=== PATIENT | male | born 1985 | race Two or more races ===

== ENCOUNTER 2022-10-18 12:40 | Emergency (ER) | payer OTHER, SELFPAY ==
[2022-10-18 13:18] VITALS: BP 128/65; PULSE 85; RESP 16; TEMP 36.6; O2SAT 99; BMI 29.4
--- NOTE | 2022-10-18 13:18 | ED_ITS ---
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 Patient denies any radiation of pain. No numbness or tingling in the groin or the lower extremities. No weakness the lower legs. No bowel or bladder incontinence. No fevers or chills. Patient is ambulatory. Patient has not tried any [id number] medications prior to arrival. Related Data Previous Rx's Medication Instructions Recorded cyclobenzaprine 10 mg tablet 10 mg PO TID PRN muscle spasm #10 10/18/22 tabs lidocaine 5 % topical patch 1 patch topical DAILY #15 ea 10/18/22 (Lidoderm) naproxen 500 mg tablet 500 mg PO BID PRN pain #30 tabs 10/18/22 Allergies Allergy/AdvReac Type Severity Reaction Status Date / Time No Known Allergies Allergy Unverified 02/14/20 18:58 [No Known Allergies*] Review of Systems Review of Systems: Yes all other systems are reviewed and are negative Constitutional: Constitutional: Reports no additional constitutional complaints, Denies body ache(s), Denies chills, Denies fever(s), Denies headache(s) and Denies weakness Eyes: Eyes: Reports no additional eye complaints and Denies change in vision ENT: Reports system reviewed and no additional complaints, except as documented, Denies dizziness, Denies headache(s), Denies nasal congestion, Denies nasal discharge and Denies neck pain Cardiovascular: Cardiovascular: Reports no additional cardiovascular complaints, Denies chest pain, Denies leg edema and Denies dyspnea Respiratory: Respiratory: Reports no additional respiratory complaints, Denies cough and Denies dyspnea Gastrointestinal: Gastrointestinal: Reports no additional gastrointestinal complaints, Denies abdominal pain, Denies diarrhea, Denies nausea and Denies vomiting Genitourinary: Genitourinary: Denies urinary incontinence Musculoskeletal: Musculoskeletal: Reports no additional musculoskeletal complaints, Reports back pain, Denies arthralgias, Denies joint swelling, Denies neck pain, Denies numbness and Denies tingling Integumentary/Breasts: Skin/Breast: Reports system reviewed and no additional complaints, except as docu and Denies rash Neurologic: Reports system reviewed and no additional complaints, except as documented, Denies Abnormal speech present, Denies dizziness, Denies headache(s), Denies numbness, Denies tingling and Denies weakness PMFSH Past Medical History Attestation statement: The following information was validated with the patient. Source: old records reviewed and nursing notes reviewed Social History Social History Advance Directives: No Advance Directives Information Provided: Yes Physical Exam Vital Signs: Vital Signs: Last Vital Signs Temp 97.9 F 10/18/22 13:18 Pulse 85 10/18/22 13:18 Resp 16 10/18/22 13:18 BP 128/65 10/18/22 13:18 Pulse Ox 99 10/18/22 13:18 O2 Del Method Room Air 10/18/22 13:18 BMI result Body Mass Index 29.4 Const: General: cooperative, healthy appearing, comfortable and no acute distress Orientation/consciousness: patient oriented x3 Limitations: no limitations HEENT: Head: Yes normal to inspection Ears: hearing grossly normal bilaterally General nose exam: Normal external nose present Face and sinus: Yes normal facial exam Mouth: Normal oral and palatal mucosa present Throat: Yes posterior oropharynx normal Eyes: General: appearance normal, both eyes and all related structures Pupils: Equal, round and reactive pupils present Neck: Neck: Yes normal visual inspection Chest: Chest palpation & inspection: normal inspection of the chest Resp: Effort & Inspection: normal respiratory effort Auscultation: clear to auscultation bilaterally Cardio: Rate: regular rate Rhythm: regular rhythm Peripheral pulses: Peripheral pulses 2+ throughout GI: Inspection: Yes normal to inspection Palpation (GI): Soft to palpation and nontender Auscultation: normal bowel sounds Back/Spine/Pelvis: Other: Patient with no midline tenderness, step-offs deformities. Patient with tenderness over the lumbar soft tissue on the right side Thoracic/Lumbar Spine: thoracic and lumbar spine normal to inspection Skin: General skin exam: no rashes or lesions noted Neuro: General: patient oriented x3, no focal motor deficits and normal sensation to monofilament Cranial nerves: Yes CN's II-XII intact bilaterally, Yes Equal, round and reactive pupils present, Yes Bilaterally intact EOM present, Yes Nystagmus not present, Yes Normal facial strength present and Yes Midline tongue present Cognition (Neuro): normal cognition Speech: No Abnormal speech present Gait exam (Neuro): Normal gait present Motor exam (neuro): 5/5 motor strength present throughout Sensory Exam: Normal double simultaneous stimulation for sensation Deep tendon reflexes (DTR's): Right patellar reflex intensity grade: 2+ and Left patellar reflex intensity grade: 2+ Extrem: General: Yes normal to inspection Medical Decision Making Medical Decision Making MDM Narrative: 36-year-old male here with acute on chronic back pain after lifting some heavy objects while working. No neurological deficits or red flag symptoms. No midline tenderness. Likely lumbar strain. Will discharge home with NSAID, muscle relaxants, medicated patches Differential Diagnosis Differential Diagnoses: The differential diagnosis associated with the presentation includes Low concern for cord compression, cauda equina, epidural abscess, malignancy, fracture, renal colic, pyelonephritis Discharge Plan Discharge Clinical Impression: Lumbar strain Patient Disposition: Home, Self-Care Instructions: Low Back Strain (ED) Additional Instructions: Heat or ice. gentle stretching. no heavy lifting or bending. follow-up with your pcp Néstor o liam. estiramiento suave. sin levantar objetos pesados ??ni agacharse. seguimiento con regan pcp Prescriptions: New naproxen 500 mg tablet 500 mg PO BID PRN (Reason: pain) Qty: 30 0RF cyclobenzaprine 10 mg tablet 10 mg PO TID PRN (Reason: muscle spasm) Qty: 10 0RF lidocaine [Lidoderm] 5 % adhesive patch,medicated 1 patch topical DAILY Qty: 15 0RF Rx Instructions: leave on most painful area for up to 12 hrs Referrals: ED Physician,Generic [Physician] - 1 week Stand Alone Forms: Work/School Release Interventions: ED Discharge Assessment Last Done: 10/18/22 13:36 Discharge Date/Time: 10/18/22 13:36 Print Language: Mosotho
== END 2022-10-18 13:36 | disposition home or self-care (01) ==
LOC: HO.ED 13:34
PROVIDERS: Emergency Provider Emergency Medicine
DX: S39.012A Strain of muscle, fascia and tendon of lower back, initial encounter (principal); X50.0XXA Overexertion from strenuous movement or load, initial encounter; Y93.9 Activity, unspecified; Y92.513 Shop (commercial) as the place of occurrence of the external cause; Y99.0 Civilian activity done for income or pay
CPT/HCPCS: 99282; 99283

== ENCOUNTER 2023-03-29 08:08 | Emergency (ER) | payer OTHER, SELFPAY ==
--- NOTE | ~2023-03-29 | XR_ITS ---
EXAMINATION: XR LUMBOSACRAL SPINE CLINICAL INFORMATION: Back injury Back pain COMPARISON: None available. TECHNIQUE: Three views of the lumbosacral spine. FINDINGS: There 5 nonrib-bearing lumbar-type vertebral bodies. The height of vertebral bodies and disc spaces is well-maintained. There is straightening of the usual lumbar lordosis which can be seen with muscle spasm. There is no spondylolisthesis. Incidental note is made of spina bifida occulta of S1; this is of doubtful clinical significance. XR/XR lumbar spine 2-3V IMPRESSION: Muscle spasm.
[2023-03-29 08:33] VITALS: BP 123/71; PULSE 75; RESP 16; TEMP 36.6; O2SAT 98; BMI 16.1
--- NOTE | 2023-03-29 08:57 | ED.BACK ---
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 Patient declines blood in the urine or dysuria. Related Data Previous Rx's Medication Instructions Recorded cyclobenzaprine 10 mg tablet 10 mg PO TID PRN muscle spasm #10 10/18/22 tabs lidocaine 5 % topical patch 1 patch topical DAILY #15 ea 10/18/22 (Lidoderm) naproxen 500 mg tablet 500 mg PO BID PRN pain #30 tabs 10/18/22 cyclobenzaprine 10 mg tablet 10 mg PO BEDTIME PRN muscle spasm 03/29/23 #10 tabs ibuprofen 400 mg tablet 400 mg PO Q8H PRN pain #14 tabs 03/29/23 Allergies Allergy/AdvReac Type Severity Reaction Status Date / Time No Known Allergies Allergy Verified 03/29/23 08:36 [No Known Allergies*] Review of Systems Review of Systems: All other systems are reviewed and are negative Constitutional: Reports as per HPI and Reports no additional constitutional complaints Eyes: Reports as per HPI and Reports no additional eye complaints Reports system reviewed and no additional complaints, except as documented Cardiovascular: Reports as per HPI and Reports no additional cardiovascular complaints Respiratory: Reports as per HPI and Reports no additional respiratory complaints Gastrointestinal: Reports as per HPI and Reports no additional gastrointestinal complaints Genitourinary: Reports no additional female genitourinary complaints Musculoskeletal: Reports no additional musculoskeletal complaints Skin/Breast: Reports system reviewed and no additional complaints, except as docu Psychiatric: Reports no additional psychiatric complaints Endocrine: Reports no additional endocrine complaints Hematologic/Lymphatic: Reports no additional hematologic/lymphatic complaints Allergic/Immunologic: Reports no additional allergic/immunologic complaints Reports system reviewed and no additional complaints, except as documented and Reports Abnormal speech present [facility] Social History Social History Smoked in Last 30 Days: Yes Use of substances other than those prescribed or required for medical reasons: Yes Substance Use Type: Marijuana Any prior treatment program specific to substance use: No Advance Directives: No Advance Directives Information Provided: Yes Physical Exam Vital Signs: Vital Signs: Last Vital Signs Temp 98 F 03/29/23 08:33 Pulse 75 03/29/23 08:33 Resp 16 03/29/23 08:33 BP 123/71 03/29/23 08:33 Pulse Ox 98 03/29/23 08:33 O2 Del Method Room Air 03/29/23 08:33 BMI result Body Mass Index 16.1 Vital signs have been reviewed and appear to be correct. Blood pressure elevated. Heart rate normal. Respiratory rate normal. Temperature normal. Oxygen saturation normal. Appearance: Alert. Oriented X3. No acute distress. Head: Normal external exam. Normocephalic. Atraumatic. No Key signs noted. No raccoon eyes noted Eyes: PERRLA. EOMI. Conjunctiva and sclera normal. Eyelids normal. ENT: TM's Normal. Pharynx normal. Uvula midline. Moist mucous membranes. No trismus noted. No drooling noted. No muffled voice noted. Neck: Normal inspection. Neck supple. FROM. No adenopathy. Thyroid Normal. No meningeal signs. No neck mass noted. CVS: Normal heart rate and rhythm. Heart sound normal. No murmurs noted. Pulses normal throughout. Respiratory: No respiratory distress. Painless inspiration. Breath sounds normal. No wheezes/rales/rhonchi noted. Chest nontender. No accessory muscle usage noted or decreased air movement noted. Abdomen: Soft and nontender. Bowel sounds normal in all 4 quadrants. No distention noted. No organomegaly noted. No visible injury noted. Back: No CVA tenderness. Full range of motion noted. Skin: Skin warm and dry. Normal skin color. Normal skin turgor. No rashes/lesions/lacerations noted. Extremities: No lower extremity edema. Extremities exhibit normal range of motion. Extremities nontender. Neuro: Oriented X 3. Cranial nerve exam: II-XII are grossly intact No motor deficit. No sensory deficit. Reflexes normal. Course Reevaluation(s) Reevaluation #1: Back pain after heavy lifting at work, UA is clear, there is no neurological deficit, patient instructed to avoid bending or heavy lifting with rest and NSAIDs if needed for pain. Time: 10:00 Medical Decision Making Differential Diagnosis Differential Diagnoses: The differential diagnosis associated with the presentation includes ( Pulled muscle, lumbar radiculopathy, kidney stone, UTI.) Admission/Observation Consideration of admission/observation: Escalation of care including admission/observation considered Lab Data MDM Lab Attestation statement: I reviewed the patient's lab results. Independent Interpretation I performed an independent interpretation of an: Plain X-Ray ( Lumbar spine x-ray: No acute pathology.) Radiology Impression Discussion of test interpretation with radiology: I have reviewed the radiologist's reading. Discharge Plan Discharge Clinical Impression: Strain of lumbar region Patient Disposition: Home, Self-Care Instructions: Muscle Strain (ED) Prescriptions: New cyclobenzaprine 10 mg tablet 10 mg PO BEDTIME PRN (Reason: muscle spasm) Qty: 10 0RF ibuprofen 400 mg tablet 400 mg PO Q8H PRN (Reason: pain) Qty: 14 0RF No Action naproxen 500 mg tablet 500 mg PO BID PRN (Reason: pain) Qty: 30 0RF cyclobenzaprine 10 mg tablet 10 mg PO TID PRN (Reason: muscle spasm) Qty: 10 0RF lidocaine [Lidoderm] 5 % adhesive patch,medicated 1 patch topical DAILY Qty: 15 0RF Rx Instructions: leave on most painful area for up to 12 hrs Stand Alone Forms: Work/School Release
[2023-03-29] MEDS: Ibuprofen 800 MG TABLET PO (09:17)
[2023-03-29 09:42] LABS: Appearance Urine Clear; Color Urine Yellow; Glucose Urine UA Negative (Negative); Leukocyte Esterase Urine Negative (Negative); Nitrite Urine Negative (Negative); Specific Gravity - Urine 1.015 (1.005-1.025); Urine Blood Negative (Negative); Urine Ketones Negative (Negative); Urine Protein Negative (Neg-Trace)
[2023-03-29 11:26] VITALS: BP 115/65; PULSE 62; RESP 16; TEMP 36.6; O2SAT 99
--- NOTE | 2023-03-29 11:32 | PC.NURSE ---
resting, calm, coop. reports decreased right lower back pain after ibuprofen.
[2023-03-29 11:33] VITALS: RESP 18
[2023-03-29 13:35] VITALS: BP 124/73; PULSE 61; RESP 16; TEMP 36.6; O2SAT 99
[2023-03-29 13:54] VITALS: BP 113/66; PULSE 60; RESP 18; TEMP 36.5; O2SAT 98
== END 2023-03-29 14:12 | disposition home or self-care (01) ==
PROVIDERS: Emergency Provider Emergency Medicine
DX: S39.012A Strain of muscle, fascia and tendon of lower back, initial encounter (principal); X50.0XXA Overexertion from strenuous movement or load, initial encounter; Y93.89 Activity, other specified; Y92.9 Unspecified place or not applicable; Y99.0 Civilian activity done for income or pay
CPT/HCPCS: 72100; 81003; 99283; 99284

== ENCOUNTER 2023-11-10 08:09 | Emergency (ER) | payer SELFPAY ==
[2023-11-10 08:26] VITALS: BP 127/67; PULSE 83; RESP 18; TEMP 36.8; O2SAT 99; BMI 29.5
--- NOTE | 2023-11-10 09:01 | ED.GENADULT ---
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 States brother is sick with similar symptoms. Denies cough or nasal congestion. Denies any chest pain or palpitations. Denies any abdominal pain, nausea, vomiting, diarrhea. States that he tested multiple times for COVID and they were all negative. complaint: Sore throat, body aches Onset (ago): day(s) Severity: moderate Quality: burning Pain Consistency: constant Relieving factors: none Exacerbating factors: none Associated symptoms: fever/chills Treatments prior to arrival: none Related Data Previous Rx's ?Medication ?Instructions ?Recorded cyclobenzaprine 10 mg tablet 10 mg PO TID PRN muscle spasm #10 10/18/22 tabs lidocaine 5 % topical patch 1 patch topical DAILY #15 ea 10/18/22 (Lidoderm) naproxen 500 mg tablet 500 mg PO BID PRN pain #30 tabs 10/18/22 cyclobenzaprine 10 mg tablet 10 mg PO BEDTIME PRN muscle spasm 03/29/23 #10 tabs ibuprofen 400 mg tablet 400 mg PO Q8H PRN pain #14 tabs 03/29/23 penicillin V potassium 500 mg 500 mg PO BID #20 tabs 11/10/23 tablet Allergies Allergy/AdvReac Type Severity Reaction Status Date / Time No Known Allergies Allergy Verified 11/10/23 08:32 [No Known Allergies*] Review of Systems Review of Systems: As per HPI. Yes all other systems are reviewed and are negative Constitutional: Constitutional: Reports as per HPI [facility] Social History Social History Substance Use Type: Marijuana Advance Directives: No Physical Exam ED Vital Signs: Vital Signs - 24 hr 11/10/23 08:26 Temperature 98.2 F Pulse Rate 83 Respiratory Rate 18 Blood Pressure 127/67 Pulse Oximetry 99 Oxygen Delivery Method Room Air BMI result Body Mass Index 29.5 Vital signs have been reviewed and appear to be correct. Blood pressure normal. Heart rate normal. Respiratory rate normal. Temperature normal. Oxygen saturation normal. Const General: cooperative, healthy appearing and no acute distress Orientation/consciousness: oriented to person, oriented to place, oriented to time and patient oriented x3 Limitations: no limitations HENMT Head: Yes normocephalic and Yes atraumatic Ears: external ears normal, TM's normal bilaterally and EAC's normal General nose exam: Normal external nose present, Normal nasal mucous membranes and turbinates present and Normal septum present Face and sinus: Yes face symmetric Mouth: Normal oral and palatal mucosa present, lip normal, tongue normal, oropharynx normal, moist mucous membranes, no drooling and no trismus Throat: Yes uvula midline, Yes abnormal tonsil (erythema, mild edema), No peritonsillar mass, Yes posterior oropharynx abnormal (erythema) and No uvular edema Eyes Pupils: Equal, round and reactive pupils present Neck Neck: Yes normal visual inspection, Yes no lymphadenopathy and Yes supple Resp Effort & Inspection: normal respiratory effort and able to speak in complete sentences Auscultation: clear to auscultation bilaterally Cardio Rate: regular rate Rhythm: regular rhythm Heart sounds: S1 normal heart sound present and S2 normal heart sound present GI Palpation (GI): Soft to palpation and nontender Auscultation: normoactive bowel sounds General: Yes no CVA tenderness Back/Spine/Pelvis Back: no CVA tenderness Skin General skin exam: elasticity normal and turgor normal Neuro General: oriented to person, oriented to place, oriented to time, patient oriented x3, moves all extremities, no focal motor deficits and CN's II-XI intact bilaterally Cranial nerves: Yes Equal, round and reactive pupils present Cognition (Neuro): normal cognition Extrem General: Yes full ROM, Yes no pedal edema and Yes no calf tenderness Psych Mental Status: mental status grossly normal Affect: normal affect Thought process: Normal thought process present Medical Decision Making Medical Decision Making MDM Narrative: Patient is a 37-year-old Belgian-speaking male presenting to the emergency department with complaint of sore throat, chills, body aches since Tuesday. On exam patient is awake, A+Ox3, VS WNL, afebrile, normal neurological exam without focal deficits, physical exam findings as above. Given reported symptoms and physical exam findings, initial differential includes viral illness, COVID, flu, RSV, strep pharyngitis. Strep swab positive. Viral serology also positive for Covid-19. Patient is outside the window for treatment with Paxlovid. Patient updated on results and all questions answered. Will treat patient with ELINA MALDONADO. Advised him he can use Tylenol and ibuprofen as needed and that he is contagious until he has been on antibiotics for 24 hours. Discussed that if brother has similar symptoms he should also be tested for strep. Return precautions discussed. Patient verbalized understanding of and agreement with plan. All results, questions, return precautions and plan discussed via engineering technical specialist at bedside. Differential Diagnosis Differential Diagnoses: The differential diagnosis associated with the presentation includes As per [facility]. Lab Data [facility] Lab Attestation statement: I reviewed the patient's lab results. As per [facility]. Labs: Lab Results 11/10/23 Range/Units 09:31 Influenza Type A (PCR) NEGATIVE (Negative) Influenza Type B (PCR) NEGATIVE (Negative) RSV RNA Qual (PCR) NEGATIVE (Negative) SARS-CoV-2 RNA (RT-PCR) POSITIVE A (Negative) S. pyogenes GrpA ADRIANA Positive A (Negative) External Record Review External record reviewed: Inpatient record, Office record and Outpatient record Prescription Management I considered prescription management with: Antibiotic Discharge Plan Discharge Clinical Impression: Acute streptococcal pharyngitis, COVID-19 Patient Disposition: Home, Self-Care Instructions: Strep Throat (DC), COVID-19 (Coronavirus Disease 2019) (ED) Additional Instructions: You were evaluated in the emergency department today for a sore throat. Your strep swab was positive as well as your Covid. You are being prescribed antibiotics, please complete the full course as prescribed even if your symptoms improve. You are contagious until you have taken the antibiotics for 24 hours. COVID is a viral infection which will resolve on its own over time. You should also continue to wear mask while symptomatic. Be sure to drink adequate fluids. You can use Tylenol and ibuprofen per package directions as needed for discomfort. You can also gargle with warm salt water several times daily. Follow-up with your primary care provider this week. Return to the emergency department if you develop difficulty swallowing, worsening pain, shortness of breath, are unable to swallow your saliva, fever not improved with Tylenol/ibuprofen, or any other concerning symptoms. Prescriptions: New penicillin V potassium 500 mg tablet 500 mg PO BID Qty: 20 0RF No Action naproxen 500 mg tablet 500 mg PO BID PRN (Reason: pain) Qty: 30 0RF cyclobenzaprine 10 mg tablet 10 mg PO TID PRN (Reason: muscle spasm) Qty: 10 0RF lidocaine [Lidoderm] 5 % adhesive patch,medicated 1 patch topical DAILY Qty: 15 0RF Rx Instructions: leave on most painful area for up to 12 hrs cyclobenzaprine 10 mg tablet 10 mg PO BEDTIME PRN (Reason: muscle spasm) Qty: 10 0RF ibuprofen 400 mg tablet 400 mg PO Q8H PRN (Reason: pain) Qty: 14 0RF Stand Alone Forms: Work/School Release Print Language: Belgian
[2023-11-10 09:42] LABS: IDNOW Serial# 08D9AD1C
[2023-11-10 09:43] LABS: Strep A Nucleic Acid Positive (Negative)
[2023-11-10 10:26] LABS: Influenza A PCR NEGATIVE (Negative); Influenza B PCR NEGATIVE (Negative); Resp Syncy Virus RNA Qual PCR NEGATIVE (Negative); SARS COV2 PCR INHOUSE POSITIVE (Negative)
[2023-11-10 10:49] VITALS: BP 127/67; PULSE 83; RESP 18; TEMP 36.8; O2SAT 99
== END 2023-11-10 10:50 | disposition home or self-care (01) ==
PROVIDERS: Emergency Provider Emergency Medicine
DX: U07.1 COVID-19 (principal); J02.0 Streptococcal pharyngitis
CPT/HCPCS: 0241U; 87651; 99282; 99283

== ENCOUNTER 2023-11-21 11:21 | Emergency (ER) | payer SELFPAY ==
--- NOTE | ~2023-11-21 | CT_ITS ---
EXAMINATION: CT ABDOMEN AND PELVIS WITH CONTRAST CLINICAL INFORMATION: Left lower quadrant pain? Diverticulitis COMPARISON: None. TECHNIQUE: Multidetector volumetric imaging was performed from the superior aspect of the liver through the pubic symphysis following administration of 85 mL Omnipaque 300 intravenous contrast. Sagittal and coronal reformatted images were obtained on the technologist workstation.. This CT examination was performed using dose optimization techniques as appropriate, variously including the following: *Automated exposure control *Adjustment of mA and/or kV according to patient size (this includes techniques or standardized protocols for targeted exams where dose is matched to indication/reason for exam; i.e. extremities or head) *Use of iterative reconstruction technique DLP: 748 mGy-cm FINDINGS: LUNG BASES: The visualized lung bases are unremarkable. LIVER, GALLBLADDER, AND BILIARY TREE: The liver is normal in size, shape, and attenuation. No focal hepatic lesion or biliary ductal dilatation is present. The gallbladder is unremarkable with no evidence of radiopaque gallstones, gallbladder wall thickening, or obvious pericholecystic inflammatory changes. PANCREAS: Unremarkable. SPLEEN: Unremarkable. ADRENAL GLANDS: Unremarkable. KIDNEYS AND URETERS: The kidneys are normal in size, shape, and attenuation. No hydronephrosis, hydroureter, or perinephric stranding. No calculi. BLADDER: Partially decompressed but otherwise unremarkable GASTROINTESTINAL TRACT: Although a few scattered colonic diverticula are seen, there is a focal inflammatory changes surrounding some pericolonic fat in the distal descending colon. The appearance is more suggestive of a torsed appendage epiploica although sequela of diverticulitis cannot be entirely excluded and should be clinically correlated. More proximal colon grossly unremarkable. Unremarkable appendix. ABDOMINAL WALL: No significant hernia is appreciated. LYMPHOVASCULAR STRUCTURES: No lymphadenopathy. The aorta is unremarkable. PELVIC VISCERA: Unremarkable. OSSEOUS STRUCTURES: Unremarkable. CT/CT abdomen pelvis w IV con IMPRESSION: Although a few scattered colonic diverticula are seen, there is a focal area of pericolonic inflammatory changes in the fat adjacent to the distal descending colon. The appearance is more suggestive of a torsed appendage epiploica although sequela of diverticulitis cannot be entirely excluded and should be clinically correlated.
--- NOTE | 2023-11-21 11:52 | ED_ITS ---
HPI - Abdominal Pain General Chief Complaint: Abdominal Pain Stated Complaint: Abd pain Time Seen by Provider: 11/21/23 20:20 Source: patient Mode of arrival: ambulatory Limitations: no limitations History of Present Illness ED Provider: raffi HOLMAN narrative: Patient has been having left lower abdominal pain with diarrhea for last 3 days diarrhea started 1st the now continued to have pain in left lower abdomen no radiation of the pain pain gets worse on bowel movement never had similar pain in the past no fever no chills no urinary symptoms no history of kidney stone patient never had similar pain in the past been gets worse after eating food Related Data Previous Rx's ?Medication ?Instructions ?Recorded cyclobenzaprine 10 mg tablet 10 mg PO TID PRN muscle spasm #10 10/18/22 tabs lidocaine 5 % topical patch 1 patch topical DAILY #15 ea 10/18/22 (Lidoderm) naproxen 500 mg tablet 500 mg PO BID PRN pain #30 tabs 10/18/22 cyclobenzaprine 10 mg tablet 10 mg PO BEDTIME PRN muscle spasm 03/29/23 #10 tabs ibuprofen 400 mg tablet 400 mg PO Q8H PRN pain #14 tabs 03/29/23 penicillin V potassium 500 mg 500 mg PO BID #20 tabs 11/10/23 tablet Allergies Allergy/AdvReac Type Severity Reaction Status Date / Time No Known Allergies Allergy Verified 11/21/23 11:54 [No Known Allergies*] Review of Systems Review of Systems Yes all other systems are reviewed and are negative [facility] Social History Social History Alcohol intake: current Alcohol intake frequency: holidays/special occasions only Smoked in Last 30 Days: Yes Use of substances other than those prescribed or required for medical reasons: Yes Substance Use Type: Marijuana Substance Use Frequency: Daily Advance Directives: No Advance Directives Information Provided: No Do you have a plan to hurt others: No Plan Physical Exam ED Vital Signs: Vital Signs - 24 hr 11/21/23 11:53 11/21/23 19:20 11/21/23 20:59 Temperature 97.8 F 97.0 F 97.8 F Pulse Rate 68 62 56 Respiratory Rate 20 18 16 Blood Pressure 119/68 121/75 115/75 Pulse Oximetry 99 100 99 Oxygen Delivery Method Room Air Room Air Room Air 11/21/23 22:33 11/21/23 23:34 Temperature 97.6 F 97.5 F Pulse Rate 53 57 Respiratory Rate 18 16 Blood Pressure 110/58 L 118/75 Pulse Oximetry 98 99 Oxygen Delivery Method Room Air Room Air BMI result Body Mass Index 30.3 Appearance: Alert. Oriented X3. No acute distress. Eyes: No pallor or icterus ENT: Pharynx normal. Oral Mucosa moist Neck: Normal inspection. Neck supple. CVS: Normal heart rate and rhythm. Pulses normal. Respiratory: No respiratory distress. Equal air entry bilateral, no wheezing/rales/rhonchi Abdomen: Soft LLQ pain with guarding no rebound tenderness, Bowel sounds are present, no mass palpable, no CVA tenderness Skin: Skin warm and dry. Normal skin color. Normal skin turgor. Extremities: No lower extremity edema. No calf tenderness Neuro: Oriented X 3. Course Course Course Narrative: This is a Rapid Medical Exam performed in triage by Zaina Medrano PA-C. Full HPI, ROS and PE to be performed by primary ED provider. 37 year-old M w/no sig PMHx presenting to the ED c/o upper abdominal pain x4 days w/diarrhea. +worse with eating. denies N/V PE: abdomen soft w/ +LLQ ttp no rebound or guarding Plan: Labs, UA, CTAP -1920--labs/UA reassuring. Reports continued abdominal pain Medical Decision Making Medical Decision Making [facility] Narrative: Patient will left lower abdominal pain CT scan showed epiploic appendagitis no signs of diverticulitis labs are stable patient improved after Toradol will discharge patient home on ibuprofen Differential Diagnosis Differential Diagnoses: The differential diagnosis associated with the presentation includes Diverticulosis/diverticulitis/epiploic appendagitis Admission/Observation Consideration of admission/observation: Escalation of care including admission/observation considered Lab Data [facility] Lab Attestation statement: I reviewed the patient's lab results. 11/21/23 13:19 11/21/23 13:19 Labs: Lab Results 11/21/23 Range/Units 13:19 WBC 8.2 (4.8-10.8) X10*3/uL RBC 5.11 (4.60-5.80) X10*6/uL Hgb 14.9 (14.0-18.0) g/dl Hct 44.9 (42.0-52.0) % MCV 87.9 (80.0-98.0) fL MCH 29.2 (27.0-33.0) pg MCHC 33.2 (31.0-36.0) g/dl RDW 13.5 (11.0-16.0) % Plt Count 202 (160-400) X10*3/uL MPV 11.2 (9.4-12.4) fL Immature Gran % (Auto) 0.2 (0.0-0.4) % Neut % (Auto) 53.4 (45-73) % Lymph % (Auto) 36.8 (20-40) % [place] % (Auto) 5.1 (2-11) % Eos % (Auto) 3.8 (0-4) % Baso % (Auto) 0.7 (0-2) % Lymph # (Auto) 3.0 (1.2-4.9) X10*3/uL [place] # (Auto) 0.4 (0.1-1.2) X10*3/uL Eos # (Auto) 0.3 (0.0-0.4) X10*3/uL Baso # (Auto) 0.1 (0.0-0.2) X10*3/uL Abs Immat Gran (auto) 0.02 (0.00-0.03) X10*3/uL Absolute Neuts (auto) 4.4 (2.0-8.3) x10*3/uL Absolute Nucleated RBC 0.000 (0.0-0.012) X10*3/uL Nucleated RBC % (auto) 0.0 (0.0-0.2) /100WBC Sodium 139 (135-145) mmol/L Potassium 4.0 (3.3-5.1) mmol/L Chloride 105 (96-108) mmol/L Carbon Dioxide 26 (22-29) mmol/L Anion Gap 12 (12-20) BUN 10 (9-16) mg/dL Creatinine 0.84 (0.5-1.4) mg/dL Estim Creat Clear Calc 151.2 Estimated GFR > 60 Random Glucose 78 (60-115) mg/dL Calcium 10.0 (8.4-10.2) mg/dL Magnesium 2.0 (1.6-2.6) mg/dL Total Bilirubin 0.4 (0.0-1.0) mg/dL Direct Bilirubin 0.2 (0.0-0.5) mg/dL AST 19 (5-37) U/L ALT 22 (0-40) U/L Alkaline Phosphatase 87 (39-117) U/L Total Protein 7.4 (6.5-8.0) g/dL Albumin 4.4 (3.5-5.0) g/dL Lipase 20 (8-78) U/L Urine Color Yellow Urine Appearance Clear Urine pH 6.0 (5.0-9.0) Ur Specific [place] 1.015 (1.005-1.025) Urine Protein Negative (Neg-Trace) mg/dL Urine Glucose (UA) Negative (Negative) mg/dL Urine Ketones Negative (Negative) mg/dL Urine Blood Negative (Negative) Urine Nitrite Negative (Negative) Ur Leukocyte Esterase Negative (Negative) Independent Interpretation I performed an independent interpretation of an: CT Scan Radiology Impression Discussion of test interpretation with radiology: I have reviewed the radiologist's reading. Medications Administered Discontinued Medications Generic Name Dose Route Start Last Admin Trade Name Freq PRN Reason Stop Dose Admin Sodium Chloride 1,000 mls @ 999 mls/hr 11/21/23 20:52 11/21/23 22:51 Ns IV 11/21/23 21:52 Infused .Q1H1M ONE Infusion Iohexol 100 ml 11/21/23 21:16 11/21/23 21:16 Iohexol 350 Mg/Ml 100 Ml Infus..Btl IV 11/21/23 21:17 85 ml ONCE ONE Administration Ketorolac Tromethamine 30 mg 11/21/23 20:52 11/21/23 21:23 Ketorolac Tromethamine 30 Mg/Ml Vial IVPUSH 11/21/23 20:53 30 mg ONCE ONE Administration Discharge Plan Discharge Clinical Impression: Epiploic appendagitis Patient Disposition: Home, Self-Care Instructions: Abdominal Pain (ED) Additional Instructions: Your pain in the abdomen is from inflammation of the fat Take ibuprofen for pain Drink plenty of fluids Prescriptions: No Action penicillin V potassium 500 mg tablet 500 mg PO BID Qty: 20 0RF naproxen 500 mg tablet 500 mg PO BID PRN (Reason: pain) Qty: 30 0RF cyclobenzaprine 10 mg tablet 10 mg PO TID PRN (Reason: muscle spasm) Qty: 10 0RF lidocaine [Lidoderm] 5 % adhesive patch,medicated 1 patch topical DAILY Qty: 15 0RF Rx Instructions: leave on most painful area for up to 12 hrs cyclobenzaprine 10 mg tablet 10 mg PO BEDTIME PRN (Reason: muscle spasm) Qty: 10 0RF ibuprofen 400 mg tablet 400 mg PO Q8H PRN (Reason: pain) Qty: 14 0RF Stand Alone Forms: Work/School Release Interventions: ED Discharge Assessment Last Done: 11/21/23 23:34 Discharge Date/Time: 11/21/23 23:30 Print Language: Kyrgyz
[2023-11-21 11:53] VITALS: BP 119/68; PULSE 68; RESP 20; TEMP 36.6; O2SAT 99; BMI 30.3
[2023-11-21 13:29] LABS: MANUAL DIFF FLAG NO
[2023-11-21 13:32] LABS: Appearance Urine Clear; Basophils Absolute Auto 0.1 X10*3/uL (0.0-0.2); Basophils Percent Auto 0.7 % (0-2); Color Urine Yellow; Eosinophils Absolute Auto 0.3 X10*3/uL (0.0-0.4); Eosinophils Percent Auto 3.8 % (0-4); Glucose Urine UA Negative (Negative); Hematocrit 44.9 % (42.0-52.0); Hemoglobin 14.9 g/dl (14.0-18.0); Imm Gran Abs Auto 0.02 X10*3/uL (0.00-0.03); Imm Gran Pct Auto 0.2 % (0.0-0.4); Leukocyte Esterase Urine Negative (Negative); Lymphocytes Percent Auto 36.8 % (20-40); Mean Corpuscular HGB Conc 33.2 g/dl (31.0-36.0); Mean Corpuscular Hemoglobin 29.2 pg (27.0-33.0); Mean Corpuscular Volume 87.9 fL (80.0-98.0); Mean Platelet Volume 11.2 fL (9.4-12.4); Monocytes Absolute Auto 0.4 X10*3/uL (0.1-1.2); Monocytes Percent Auto 5.1 % (2-11); Neutrophils Absolute Auto 4.4 x10*3/uL (2.0-8.3); Neutrophils Percent Auto 53.4 % (45-73); Nitrite Urine Negative (Negative); Platelet Count 202 X10*3/uL (160-400); Red Blood Count 5.11 X10*6/uL (4.60-5.80); Red Cell Distribution Width 13.5 % (11.0-16.0); Specific Gravity - Urine 1.015 (1.005-1.025); Urine Blood Negative (Negative); Urine Ketones Negative (Negative); Urine Protein Negative (Neg-Trace); White Blood Count 8.2 X10*3/uL (4.8-10.8)
[2023-11-21 13:48] LABS: Alanine Aminotransferase 22 U/L (0-40); Albumin Level 4.4 g/dL (3.5-5.0); Alkaline Phosphatase 87 U/L (39-117); Anion Gap 12 (12-20); Aspartate Amino Transferase 19 U/L (5-37); Bilirubin Direct 0.2 mg/dL (0.0-0.5); Bilirubin Total 0.4 mg/dL (0.0-1.0); Blood Urea Nitrogen 10 mg/dL (9-16); Carbon Dioxide 26 mmol/L (22-29); Chloride 105 mmol/L (96-108); Creatinine Clr Calc Pharmacy 151.2; Estimated Glomerular Filt Rate > 60; Glucose Random 78 mg/dL (60-115); Lipase 20 U/L (8-78); Sodium 139 mmol/L (135-145); Total Protein 7.4 g/dL (6.5-8.0)
[2023-11-21 19:20] VITALS: BP 121/75; PULSE 62; RESP 18; TEMP 36.1; O2SAT 100
[2023-11-21 20:59] VITALS: BP 115/75; PULSE 56; RESP 16; TEMP 36.6; O2SAT 99
[2023-11-21] MEDS: iohexoL 350 MG/ML 100 ML INFUS..BTL IV (21:16)
[2023-11-21] MEDS: Ketorolac Tromethamine 30 MG/ML VIAL IVPUSH (21:23)
[2023-11-21] MEDS: 0.9 % Sodium Chloride 1,000 ML 999 ML IV (21:23)
[2023-11-21 22:33] VITALS: BP 110/58; PULSE 53; RESP 18; TEMP 36.4; O2SAT 98
[2023-11-21 23:34] VITALS: BP 118/75; PULSE 57; RESP 16; TEMP 36.4; O2SAT 99
== END 2023-11-21 23:30 | disposition home or self-care (01) ==
PROVIDERS: Physician Assistant; Emergency Provider Internal Medicine
DX: R10.32 Left lower quadrant pain (principal); K63.89 Other specified diseases of intestine; R11.0 Nausea; Z79.899 Other long term (current) drug therapy
CPT/HCPCS: 36415; 74177; 80048; 80076; 81003; 83690; 83735; 85025; 96361; 96374; 99283; 99285; J1885; Q9967

== ENCOUNTER 2024-09-05 17:43 | Emergency (ER) | payer SELFPAY ==
--- NOTE | ~2024-09-05 | US_ITS ---
CLINICAL HISTORY: pain and swelling Venous duplex ultrasound bilateral lower extremity COMPARISON: None FINDINGS: The visualized deep veins are fully compressible with normal Doppler color flow and spectral tracings. No popliteal cyst. IMPRESSION: 1. Negative for bilateral lower extremity deep vein thrombosis. This document has been electronically signed by: Olvin Quinonez MD on 09/05/2024 19:05:36
[2024-09-05 18:04] VITALS: BP 127/57; PULSE 80; RESP 18; TEMP 36.6; O2SAT 99; BMI 32.6
--- NOTE | 2024-09-05 18:04 | ED.GENADULT ---
HPI - General Adult General Chief complaint: General Medical Stated complaint: bilateral feet swelling Time Seen by Provider: 09/05/24 19:37 Source: patient Mode of arrival: ambulatory Limitations: language barrier (Polish-speaking flour broker utilized) History of Present Illness ED Provider: carie bolton NP HPI narrative: Patient is a 38-year-old male who presents emergency department for evaluation. He reports that he returned home early this morning from a flight from [place], he he admits to doing a lot of walking she does not typically do and drank a lot of alcohol. When returning home he noticed swelling to his bilateral ankles. Admits that this has previously happened in the past but has not sought evaluation for this. He denies associated pain in the leg or lower extremities, numbness or tingling, cough, shortness of breath, chest pain, redness or swelling of the extremities, history of VTE/malignancy. Related Data Previous Rx's ?Medication ?Instructions ?Recorded cyclobenzaprine 10 mg tablet 10 mg PO TID PRN muscle spasm #10 10/18/22 tabs lidocaine 5 % topical patch 1 patch topical DAILY #15 ea 10/18/22 (Lidoderm) naproxen 500 mg tablet 500 mg PO BID PRN pain #30 tabs 10/18/22 cyclobenzaprine 10 mg tablet 10 mg PO BEDTIME PRN muscle spasm 03/29/23 #10 tabs ibuprofen 400 mg tablet 400 mg PO Q8H PRN pain #14 tabs 03/29/23 penicillin V potassium 500 mg 500 mg PO BID #20 tabs 11/10/23 tablet Allergies Allergy/AdvReac Type Severity Reaction Status Date / Time No Known Allergies Allergy Verified 09/05/24 18:07 [No Known Allergies*] Review of Systems Review of Systems: Yes all other systems are reviewed and are negative PMFSH Past Medical History Attestation statement: The following information was validated with the patient. Source: old records reviewed Social History Social History Alcohol intake: current Alcohol intake frequency: holidays/special occasions only Substance Use Type: Marijuana Advance Directives: No Advance Directives Information Provided: Yes Physical Exam ED Vital Signs: Vital Signs - 24 hr 09/05/24 18:04 Temperature 97.8 F Pulse Rate 80 Respiratory Rate 18 Blood Pressure 127/57 L Pulse Oximetry 99 Oxygen Delivery Method Room Air BMI result Body Mass Index 32.6 Appearance: Alert.?Oriented to person, place and time. No acute distress.?Normal affect. CVS: Heart sounds normal. Normal heart rate and rhythm.? Pulses normal.?? Respiratory: No respiratory distress.? Lung sounds clear to auscultation bilaterally?? Abdomen: Soft and non-tender. Normoactive bowel sounds. Skin: Skin warm and dry.? Normal skin color.? Extremities: Mild nonpitting edema to the bilateral ankles. No calf tenderness upon palpation. No erythema or warmth. 2+ DP/PT pulse Neuro: Moves all extremities spontaneously. Sensation intact bilaterally. No focal neuro deficits. Ambulates with normal steady gait. Course Course Course Narrative: RME, this is a rapid medical exam performed by Javad Toribio please refer to primary provider for complete H&P- 38-year-old male presents for evaluation of bilateral leg swelling. He reports that he returned from [place] this morning, he was doing lots of walking and drinking it a lot of alcohol. He denies any leg pain, cough, chest pain or shortness of breath. Plan for labs, ultrasound of the lower extremities Medical Decision Making Medical Decision Making MDM Narrative: Patient is a 38-year-old male with no reported past medical history presents emergency department for evaluation of swelling to the bilateral ankles as per HPI. On evaluation does have very mild swelling to the bilateral ankles nonpitting, does not extend to the calf or the bilateral feet. By patient's account has happened in the past as well with prolonged standing during work. Favoring what I suspect is a dependent edema. Otherwise is without signs of volume overload. No tachypnea tachycardia or hypoxia, LS CTA, no history of CHF/hypertension. Benign abdominal examination, denies being a daily drinker, though he did consume large volumes of alcohol during his most recent vacation. Workup obtained prior to my assumption of care reveals a CBC without leukocytosis anemia or thrombocytopenia. No significant electrolyte derangement. No BHARGAV. Unremarkable LFTs. Normal BNP. Bilateral venous duplex ultrasound without evidence of DVT. Discussed conservative treatment for mild dependent edema and worrisome signs and symptoms that would warrant re-evaluation in the emergency department. All questions answered. Stable for discharge Differential Diagnosis Differential Diagnoses: The differential diagnosis associated with the presentation includes (See narrative above) Admission/Observation Consideration of admission/observation: Escalation of care including admission/observation considered Lab Data MDM Lab Attestation statement: I reviewed the patient's lab results. (See narrative above) 09/05/24 19:32 09/05/24 19:32 Labs: Lab Results 09/05/24 Range/Units 19:32 WBC 6.9 (4.8-10.8) X10*3/uL RBC 4.88 (4.60-5.80) X10*6/uL Hgb 14.4 (14.0-18.0) g/dl Hct 42.6 (42.0-52.0) % MCV 87.3 (80.0-98.0) fL MCH 29.5 (27.0-33.0) pg MCHC 33.8 (31.0-36.0) g/dl RDW 13.8 (11.0-16.0) % Plt Count 188 (160-400) X10*3/uL MPV 10.9 (9.4-12.4) fL Immature Gran % (Auto) 0.3 (0.0-0.4) % Neut % (Auto) 49.6 (45-73) % Lymph % (Auto) 38.0 (20-40) % [place] % (Auto) 7.2 (2-11) % Eos % (Auto) 4.2 H (0-4) % Baso % (Auto) 0.7 (0-2) % Lymph # (Auto) 2.6 (1.2-4.9) X10*3/uL [place] # (Auto) 0.5 (0.1-1.2) X10*3/uL Eos # (Auto) 0.3 (0.0-0.4) X10*3/uL Baso # (Auto) 0.1 (0.0-0.2) X10*3/uL Abs Immat Gran (auto) 0.02 (0.00-0.03) X10*3/uL Absolute Neuts (auto) 3.4 (2.0-8.3) x10*3/uL Absolute Nucleated RBC 0.000 (0.0-0.012) X10*3/uL Nucleated RBC % (auto) 0.0 (0.0-0.2) /100WBC Sodium 141 (135-145) mmol/L Potassium 3.8 (3.3-5.1) mmol/L Chloride 110 H (96-108) mmol/L Carbon Dioxide 26 (22-29) mmol/L Anion Gap 9 L (12-20) BUN 11 (9-16) mg/dL Creatinine 0.82 (0.5-1.4) mg/dL Estim Creat Clear Calc 149.8 Estimated GFR > 60 Random Glucose 105 (60-115) mg/dL Calcium 9.0 D (8.4-10.2) mg/dL Total Bilirubin 0.3 (0.0-1.0) mg/dL AST 22 (5-37) U/L ALT 29 (0-40) U/L Alkaline Phosphatase 76 (39-117) U/L B-Natriuretic Peptide 11 (<100) pg/mL Total Protein 6.6 (6.5-8.0) g/dL Albumin 4.1 (3.5-5.0) g/dL Lipase 47 (8-78) U/L Ethyl Alcohol < 10 mg/dL Radiology Impression Discussion of test interpretation with radiology: I have reviewed the radiologist's reading. Radiologist Impression: Venous duplex ultrasound bilateral lower extremity COMPARISON: None FINDINGS: The visualized deep veins are fully compressible with normal Doppler color flow and spectral tracings. No popliteal cyst. IMPRESSION: 1. Negative for bilateral lower extremity deep vein thrombosis. Independent Historian Clinical information obtained from an independent historian. History obtained from or confirmed by: Spouse External Record Review External record reviewed: Outpatient record Discharge Plan Discharge Clinical Impression: Lower extremity edema Patient Disposition: Home, Self-Care Instructions: Leg Edema (ED) Additional Instructions: Rest over the next few days, elevate your legs above the level of your chest, compression stockings especially when you are having these prolonged standing such as at work. Return with new or worsening symptoms or concerns which include but is not limited to chest pain, shortness of breath and difficulty breathing, dizziness, lightheadedness, numbness or tingling of the extremities, increasing swelling to the legs, pain to the legs. Prescriptions: No Action penicillin V potassium 500 mg tablet 500 mg PO BID Qty: 20 0RF naproxen 500 mg tablet 500 mg PO BID PRN (Reason: pain) Qty: 30 0RF cyclobenzaprine 10 mg tablet 10 mg PO TID PRN (Reason: muscle spasm) Qty: 10 0RF lidocaine [Lidoderm] 5 % adhesive patch,medicated 1 patch topical DAILY Qty: 15 0RF Rx Instructions: leave on most painful area for up to 12 hrs cyclobenzaprine 10 mg tablet 10 mg PO BEDTIME PRN (Reason: muscle spasm) Qty: 10 0RF ibuprofen 400 mg tablet 400 mg PO Q8H PRN (Reason: pain) Qty: 14 0RF Referrals: Physician,None [Primary Care Provider] - Stand Alone Forms: Work/School Release Print Language: Polish
[2024-09-05 19:37] LABS: MANUAL DIFF FLAG NO
[2024-09-05 19:39] LABS: Basophils Absolute Auto 0.1 X10*3/uL (0.0-0.2); Basophils Percent Auto 0.7 % (0-2); Eosinophils Absolute Auto 0.3 X10*3/uL (0.0-0.4); Eosinophils Percent Auto 4.2 % (0-4); Hematocrit 42.6 % (42.0-52.0); Hemoglobin 14.4 g/dl (14.0-18.0); Imm Gran Abs Auto 0.02 X10*3/uL (0.00-0.03); Imm Gran Pct Auto 0.3 % (0.0-0.4); Lymphocytes Absolute Auto 2.6 X10*3/uL (1.2-4.9); Mean Corpuscular HGB Conc 33.8 g/dl (31.0-36.0); Mean Corpuscular Hemoglobin 29.5 pg (27.0-33.0); Mean Corpuscular Volume 87.3 fL (80.0-98.0); Mean Platelet Volume 10.9 fL (9.4-12.4); Monocytes Absolute Auto 0.5 X10*3/uL (0.1-1.2); Monocytes Percent Auto 7.2 % (2-11); Neutrophils Absolute Auto 3.4 x10*3/uL (2.0-8.3); Neutrophils Percent Auto 49.6 % (45-73); Platelet Count 188 X10*3/uL (160-400); Red Blood Count 4.88 X10*6/uL (4.60-5.80); Red Cell Distribution Width 13.8 % (11.0-16.0); White Blood Count 6.9 X10*3/uL (4.8-10.8)
[2024-09-05 19:52] LABS: Ethanol < 10 mg/dL
[2024-09-05 19:53] LABS: Alanine Aminotransferase 29 U/L (0-40); Albumin Level 4.1 g/dL (3.5-5.0); Alkaline Phosphatase 76 U/L (39-117); Anion Gap 9 (12-20); Aspartate Amino Transferase 22 U/L (5-37); Bilirubin Total 0.3 mg/dL (0.0-1.0); Blood Urea Nitrogen 11 mg/dL (9-16); Carbon Dioxide 26 mmol/L (22-29); Chloride 110 mmol/L (96-108); Creatinine Clr Calc Pharmacy 149.8; Estimated Glomerular Filt Rate > 60; Glucose Random 105 mg/dL (60-115); Lipase 47 U/L (8-78); Potassium 3.8 mmol/L (3.3-5.1); Sodium 141 mmol/L (135-145); Total Protein 6.6 g/dL (6.5-8.0)
[2024-09-05 19:59] LABS: B Type Natriuretic Peptide 11 pg/mL (<100)
[2024-09-05 21:50] VITALS: BP 130/85; PULSE 64; RESP 19; TEMP 36.6; O2SAT 99
[2024-09-05 21:55] VITALS: BP 130/85; PULSE 64; RESP 19; TEMP 36.6; O2SAT 99
== END 2024-09-05 21:56 | disposition home or self-care (01) ==
PROVIDERS: Physician Assistant; Emergency Provider Emergency Medicine
DX: R60.0 Localized edema (principal); Z51.81 Encounter for therapeutic drug level monitoring; Z79.899 Other long term (current) drug therapy
CPT/HCPCS: 36415; 80053; 80307; 83690; 83880; 85025; 93970; 99283; 99284

== ENCOUNTER → 2024-09-05 18:04 | Outpatient (BNV) | payer SELFPAY | PROVIDERS: Visit Provider Radiology Diagnostic Radiology | DX: R22.43 Localized swelling, mass and lump, lower limb, bilateral (principal) | CPT/HCPCS: 93970 ==